=== PATIENT | female | born 1980 | race Caucasian/White ===

== ENCOUNTER 2019-11-07 18:05 | Emergency (ER) | payer OTHER ==
[~2019-11-07] VITALS: Ht 152.4 cm; Wt 86.5 kg
--- NOTE | 2019-11-07 18:29 | NUR ---
Alvin notified and states will contact us shortly.
--- NOTE | 2019-11-07 18:30 | NUR ---
[facility] contacted and states an advocate is on her way to ER.
--- NOTE | 2019-11-07 19:16 | NUR ---
rpd here to interview patient advocate from [facility] stating pt declining to speak with rpd but wants exam, i explained the difference between the 2 exams to the advocate and why it was important for patient to speak with rpd, advocate will educate the patient and inform us if she changes her mind.
[2019-11-07] MEDS ORDERED: azithromycin 250mg tablet PO ONE (21:00)
[2019-11-07] MEDS ORDERED: CefTRIAXone 250MG IM Kit w/LIDOcaine IM ONE (21:00)
[2019-11-07] MEDS ORDERED: metroNIDAZOLE 500mg tablet PO ONE (21:00)
[2019-11-07] MEDS ORDERED: acetaminophen 325mg tablet PO ONE (23:55)
[2019-11-08 00:39] LABS: URINE HCG NEGATIVE (NEG)
[2019-11-08 00:48] LABS: URINE AMPHETAMINE SCREEN NEGATIVE (Neg); URINE BARBITUATE SCREEN NEGATIVE (Neg); URINE BENZODIAZEPINES SCREEN NEGATIVE (Neg); URINE CANNABINOID SCREEN NEGATIVE (Neg); URINE COCAINE SCREEN NEGATIVE (Neg); URINE METHADONE SCREEN NEGATIVE (Neg); URINE OPIATE SCREEN NEGATIVE (Neg); URINE PHENCYCLIDINE SCREEN NEGATIVE (Neg)
[2019-11-08 00:49] LABS: ALANINE AMINOTRANSFERASE 60 U/L (12-78); ALBUMIN 3.8 G/DL (3.4-5.0); ALKALINE PHOSPHATASE 120 IU/L (46-116); ANION GAP 6 (8-16); ASPARTATE AMINO TRANSFERASE 71 U/L (10-37); BILIRUBIN,TOTAL 3.1 MG/DL (0.1-1.0); BLOOD UREA NITROGEN 10 MG/DL (7-18); BUN/CREATININE RATIO 14.1 (6.6-38.0); CALCIUM 8.8 MG/DL (8.5-10.1); CHLORIDE 106 MMOL/L (99-107); CREATININE 0.71 MG/DL (0.40-0.90); GLUCOSE 83 MG/DL (70-104); POTASSIUM 3.5 MMOL/L (3.5-5.1); SODIUM 141 MMOL/L (135-145); TOTAL CARBON DIOXIDE 28.8 MMOL/L (24-32); TOTAL PROTEIN 7.5 G/DL (6.4-8.2); eGFR > 90 ML/MIN
[2019-11-08 00:50] LABS: BASOPHILS % (AUTO) 0.9 % (0-1); EOSINOPHILS # (AUTO) 0.1 X10'3 (0-0.9); EOSINOPHILS % (AUTO) 2.2 % (0-6); HEMATOCRIT 39.3 % (35.0-45.0); HEMOGLOBIN 13.5 g/dl (12.0-16.0); LYMPHOCYTES # (AUTO) 1.2 X10'3 (1.1-4.8); LYMPHOCYTES % (AUTO) 33.5 % (21-51); MEAN CORPUSCULAR HEMOGLOBIN 34.3 PG (27.0-31.0); MEAN CORPUSCULAR HGB CONC 34.5 g/dL (33.0-36.5); MEAN CORPUSCULAR VOLUME 99.5 FL (78-98); MEAN PLATELET VOLUME 8.9 FL (7.4-10.4); MONOCYTES # (AUTO) 0.3 X10'3 (0-0.9); MONOCYTES % (AUTO) 9.6 % (2-12); NEUTROPHILS # (AUTO) 1.9 X10'3 (1.8-7.7); NEUTROPHILS % (AUTO) 53.8 % (42-75); PLATELET COUNT 149 X10'3 (140-440); RED BLOOD COUNT 3.95 X10'6 (4.20-5.60); WHITE BLOOD COUNT 3.6 X10'3 (4.5-11.0)
[2019-11-08 00:57] LABS: ETHANOL < 0.010 GM/DL (0.0-0.010)
[2019-11-08 01:12] LABS: CLARITY,URINE CLOUDY (Clear); COLOR,URINE AMBER (Yellow); GLUCOSE, URINE 100 mg/dl (Neg); KETONES,URINE 15 mg/dl (Neg); LEUKOCYTE ESTERASE ,URINE NEGATIVE (Neg); NITRITES, URINE POSITIVE (Neg); OCCULT BLOOD,URINE TRACE-INTACT (Neg); PROTEIN,URINE NEGATIVE (Neg)
[2019-11-08 01:14] LABS: UA COLLECTION TYPE VOIDED
[2019-11-08 01:46] LABS: AMORPHOUS URATES 3+; BACTERIA,URINE NONE SEEN /HPF (Neg); MUCUS STRANDS NONE SEEN /LPF (Neg); RBC,URINE NONE SEEN /HPF (0-2); SQUAMOUS EPITHELIAL CELL,UR FEW /LPF (FEW); WBC,URINE 0-4 /HPF (0-4)
--- NOTE | 2019-11-08 03:45 | NUR ---
2049: pt verbally consented to SART exam after brief overview with Jim and [facility] pt advocate Naomie present. 2054: Urine and blood obtained following written consent for SART exam after questions answered. Exam started. 2354: Medical examination by mary kay Ji. Med order discussed earlier confirmed for prophylactic STDs but not give pt has had a tubal ligation. 0000: Pt refused offered shower. F/U r/t [facility] explained with appropriate verbal response from pt obtained. 0010: Pt dc'd after verbalizing understanding of dc poc including f/u. 0350: ms r/t pt f/u left for Francisca Jackson [facility]
[2019-11-08 04:19] VITALS: BP 137/96
== END 2019-11-08 00:10 | disposition home or self-care (01) ==
LOC: EEVIPCON 18:10 → ER 18:10
DX: S06.0X9A Concussion with loss of consciousness of unspecified duration, initial encounter (principal); S00.03XA Contusion of scalp, initial encounter; T76.21XA Adult sexual abuse, suspected, initial encounter; R94.6 Abnormal results of thyroid function studies; Z88.5 Allergy status to narcotic agent; X58.XXXA Exposure to other specified factors, initial encounter; Y93.89 Activity, other specified; Y92.89 Other specified places as the place of occurrence of the external cause; Y99.8 Other external cause status
CPT/HCPCS: 36415; 80053; 80305; 80320; 81001; 81025; 84443; 85025; 87088; 87491; 87591; 96372; 99284; J0696; J3490